=== PATIENT | female | born 1970 | race Caucasian/White ===

== ENCOUNTER 2016-10-04 16:19 | Emergency (ER) | payer MEDICAID ==
[2016-10-04 16:47] VITALS: BP 144/82; PULSE 67; RESP 18; TEMP 98.4; O2SAT 98; BMI 31.8
--- NOTE | 2016-10-04 17:35 | ED PDOC ---
Arrival/HPI - General Chief Complaint: Lower Extremity Problem/Injury Time Seen by Provider: 10/04/16 17:31 - History of Present Illness Narrative History of Present Illness (Text): 46 y/o F p/w L foot 1st digit pain x weeks. Patient was in this ER and was diagnosed with ingrown toenail. She was discharged on Bactrim, which she finished. She followed up with Podiatry 2 days ago who removed the ingrown part of the nail. She states the clothes drier assembler faxed prescriptions to the pharmacy but when she got there, they were not there. She denies new redness, pus, fever. Past Medical History - Musculoskeletal/Rheumatological Hx Arthritis: Yes Hx Rheumatoid Arthritis: Yes - Psychiatric Hx Substance Use: No - Surgical History Hx Cholecystectomy: Yes - Anesthesia Hx Anesthesia: Yes Hx Anesthesia Reactions: No Family/Social History Family/Social History: No Known Family HX Smoking Status: Never Smoked Hx Alcohol Use: No Hx Substance Use: No Allergies/Home Meds Allergies/Adverse Reactions: Allergies No Known Allergies Allergy (Verified 10/04/16 16:32) Home Medications: Home Meds Medication Instructions Recorded Confirmed Folic Acid 1 tab PO DAILY 04/12/16 10/04/16 Hydroxychloroquine Sulfate 1 tab PO BID 04/12/16 10/04/16 Methotrexate [Methotrexate] 2.5 mg PO DAILY 10/04/16 10/04/16 Review of Systems - Physician Review All systems were reviewed & negative as marked: Yes - Review of Systems Constitutional: absent: Fevers Respiratory: absent: SOB Physical Exam - Physical Exam Narrative Physical Exam (Text): Constitutional: No acute distress. Head: Normocephalic. Atraumatic. Eyes: PERRL. ENT: Moist mucous membranes. Neck: Supple. Cardiovascular: Regular rate. Chest: No tenderness. Respiratory: Clear to auscultation bilaterally. GI: Soft. Nontender. Nondistended. Back: No CVA tenderness. Musculoskeletal: L foot 1st digit with removed medial aspect of nail. No pus or other discharge, no erythema. Skin: No rash. Neurologic: Alert, no focal deficit. Vital Signs Temp Pulse Resp BP Pulse Ox 10/04/16 16:20 98.4 F 67 18 144/82 98 Medical Decision Making ED Course and Treatment: Will discharge on Percocet as needed, ibuprofen at baseline, drug registry checked, no prior entries. Antibiotic ointment. Patient has follow up with podiatry. Instructed to return to the ER for erythema or discharge of pus. Disposition/Present on Arrival - Present on Arrival Any Indicators Present on Arrival: No History of DVT/PE: No History of Uncontrolled Diabetes: No Urinary Catheter: No History of Decub. Ulcer: No History Surgical Site Infection Following: None - Disposition Have Diagnosis and Disposition been Completed?: Yes Diagnosis: Ingrown left big toenail Disposition: HOME/ ROUTINE Disposition Time: 17:37 Patient Plan: Discharge Condition: STABLE Discharge Instructions (ExitCare): Ingrown Nail (ED) Prescriptions: Mupirocin 2% Cream [Bactroban Cream] 1 applic TOP BID #1 tube oxyCODONE/Acetaminophen [Percocet 5/325 mg Tab] 1 tab PO Q6 #10 tab
== END 2016-10-04 18:17 | disposition home or self-care (01) ==
LOC: ED 16:19
DX: L60.0 Ingrowing nail (principal)